=== PATIENT | female | born 1960 | race Caucasian/White ===

== ENCOUNTER 2016-07-21 14:03 | Emergency (ER) | payer OTHER ==
--- NOTE | ~2016-07-21 | CT2 ---
[facility] A Service of [facility] RADIOLOGY TEXT RESULTS PATIENT: DALIA ROONEY LOCATION: [facility]FT[facility] : 56 UNIT #: [id number] AGE: [address]: Nataly Tirado APRN SEX: F ORDER DR: [id number] [facility] [address] [place], [place] [address] [id number] E MR#: [id number] Acc #: [id number] NAME: DALIA ROONEY : 1960 SEX: F STUDY DATE/TIME: 07/21/2016 16:05 UNIT: [facility] ROOM: STUDY DESCRIPTION: CT Abd and Pelv W Cont Attending Physician: Nataly Tirado A.P.R.N. Ordering Physician: Ed Doctor [id number] [facility] Primary Care Physician: Roseline Car M.D. MEDICAL IMAGING REPORT This report is preliminary unless electronic signature is present EXAM CT abdomen and pelvis with oral and IV contrast HISTORY Left flank pain for [address] abdomen and pelvis was performed with oral and IV contrast. This CT exam was performed with one or more of the following radiation dose reduction techniques: automatic exposure control, adjustment of mA and/or kV according to patient size, and iterative reconstruction. CT ABDOMEN: Diffuse fatty infiltration of the liver. Probable subcapsular cyst or scar in the lateral right hepatic dome. No biliary dilatation. Gallbladder, spleen, pancreas, kidneys, and adrenal glands are normal. Normal appendix, which is positioned deep to the umbilicus in the lower abdominal and upper pelvic midline. CT PELVIS: The uterus and adnexa are unremarkable. No bowel dilatation. No adenopathy. No ascites. Urinary bladder is normal. Mild sigmoid diverticulosis. IMPRESSION 1. No acute findings in the abdomen or pelvis. 2. Fatty infiltration of the liver. 3. Normal appendix which is positioned incidentally in the midline deep to the umbilicus in the lower abdomen and upper pelvis. 4. No urinary obstruction or bowel obstruction. Dictated by... Haroldo Pham M.D. [facility] A Service of [facility] RADIOLOGY TEXT RESULTS PATIENT: DALIA ROONEY LOCATION: [facility] : 56 UNIT #: [id number] AGE: [address]: Nataly Tirado APRN SEX: F ORDER DR: THIS IS AN ELECTRONICALLY VERIFIED REPORT Haroldo Pham M.D. at 07/21/2016 11:13 PM LEANDRA/demi TD: 07/21/2016 22:06 JOB #: [id number] MEDICAL IMAGING REPORT Page 1 of 1 COPY
[2016-07-21 14:48] LABS: BASOPHIL# 0.1 X10e3 (0-0.3); BASOPHIL% 0.7 % (0-2.5); EOSINOPHIL# 0.2 X10e3 (0-0.7); EOSINOPHIL% 2.4 % (0.0-7.0); HEMATOCRIT 45.9 % (35.0-45.0); HEMOGLOBIN 15.3 gm/dL (12.0-16.0); LYMPHOCYTE# 2.7 X10e3 (1.0-3.5); LYMPHOCYTE% 27.6 % (17.0-45.0); MEAN CELL VOLUME 88.9 FL (83-96); MEAN CORPUSCULAR HEMOGLOBIN 29.7 PG (28-34); MEAN CORPUSCULAR HGB CONC 33.4 g/dL (30-36); MONOCYTE# 0.5 X10e3 (0-1.0); MONOCYTE% 5.5 % (3.0-12.0); NEUTROPHIL# 6.2 X10e3 (1.5-7.1); NEUTROPHIL% 63.8 % (40-75); PLATELET COUNT 241 X10e3 (140-420); RED BLOOD COUNT 5.16 X10e (3.90-5.30); RED CELL DISTRIBUTION WIDTH 12.8 % (11.0-15.5); WHITE BLOOD COUNT 9.7 X10e3 (4.0-10.5)
[2016-07-21 14:49] LABS: DIFF IND NO
[2016-07-21 15:13] LABS: ALBUMIN SERUM 4.5 g/dL (3.5-5.0); BILIRUBIN, DIRECT 0.1 mg/dL (0.0-0.2); BILIRUBIN,INDIRECT 0.8 mg/dL (0.0-0.9); BILIRUBIN,TOTAL 0.9 mg/dL (0.2-2.0); CALCIUM SERUM 9.5 mg/dL (8.4-10.2); CREATININE SERUM 0.5 mg/dL (0.6-1.4); GLOM FILT RATE Estimated 106.7 mL/min (>60); PROTEIN TOTAL SERUM 8.3 g/dL (6.0-8.3)
[2016-07-21 15:21] LABS: URINE SOURCE CLEAN CATCH
[2016-07-21 15:37] LABS: URINE APPEARANCE CLEAR; URINE BILIRUBIN NEG (NEG); URINE BLOOD NEG (NEG); URINE COLOR YELLOW; URINE GLUCOSE >1000 MG/DL (NEG); URINE KETONE 1+ (NEG); URINE LEUKOCYTE ESTERASE NEG (NEG); URINE NITRATE NEG (NEG); URINE PROTEIN NEG (NEG); URINE SPECIFIC GRAVITY 1.021 (1.003-1.035); URINE UROBILINOGEN 0.2 MG/DL (NEG)
[2016-07-21 15:48] LABS: CULTURE INDICATED? NO
== END 2016-07-21 17:57 | disposition home or self-care (01) ==
LOC: CFTX 14:03 → CED 14:03 → CFTX 14:56
PROVIDERS: Nurse Practitioner
DX: R10.12 Left upper quadrant pain (principal); I10 Essential (primary) hypertension
CPT/HCPCS: 36415; 74177; 80048; 80076; 81003; 82150; 83690; 85025; 96374; 96375; 96376; 99284; J2270; J2405; Q9967